=== PATIENT | male | born 1990 | race Caucasian/White ===

== ENCOUNTER → 2020-07-19 08:46 | Outpatient (CLI) | payer OTHER, SELFPAY ==
--- NOTE | 2020-07-19 09:00 | RAD_ITS ---
EXAMINATION: UPPER GI SERIES INDICATION: Male, 30 years dysphagia. History of reflux. FLUOROSCOPY TIME (if supplied): (0:56) minutes/seconds. 25 images were obtained. TECHNIQUE: Radiographic and fluoroscopic images of the distal esophagus, stomach, and proximal small intestine were obtained following the oral ingestion of barium. COMPARISON: None. FINDINGS: There is no evidence for organomegaly, abnormal calcifications, or abnormal bowel gas pattern. The psoas margins and flank stripes are normal. The visualized osseous structures are normal. The mucosa of the esophagus, stomach and duodenum is normal in appearance without evidence for stricture, ulceration, mass or diverticulum. There is no evidence for hiatal hernia or gastroesophageal reflux. RAD/Upper GI Dual Contrast IMPRESSION: 1. Normal upper gastrointestinal study. Electronically Signed: Roger Vaughn MD at 10:11 EST , Service support ,
== END ==
PROVIDERS: PCP Family Medicine; Referring Provider Family Medicine; Visit Provider Family Medicine
DX: R13.10 Dysphagia, unspecified (principal)
CPT/HCPCS: 74246